=== PATIENT | male | born 1980 | race African-American/Black ===

== ENCOUNTER 2021-02-26 22:13 | Emergency (ER) | payer OTHER, SELFPAY ==
[2021-02-26 22:15] VITALS: BP 135/84; PULSE 90; RESP 16; TEMP 35.9; O2SAT 100
--- NOTE | 2021-02-26 22:51 | ED.URI ---
HPI - URI/Sore Throat General Chief Complaint: Upper Respiratory Infection Stated Complaint: sore throat Time Seen by Provider: 02/26/21 22:51 Source: patient Mode of arrival: ambulatory Limitations: no limitations History of Present Illness HPI Narrative: Patient is a 40-year-old male who is presenting for evaluation of sore throat, fever. Patient states that his is sick with similar symptoms. He started feeling unwell on Tuesday. Reports subjective fever, denies chills. No chest pain or shortness of breath. Denies cough. Patient reports myalgias as well as swollen lymph nodes in his neck. No difficulty tolerating his secretions. He has been able to eat and drink. He did take a tablet of amoxicillin that his had at home. Patient's was recently diagnosed with strep throat. He is worried that he also has strep throat. He reports that he had Covid in 2019 before anybody was officially diagnosed with Covid. He is vaccinated for Covid. Denies loss of sense of taste or smell. No diarrhea. No shortness of breath Related Data Allergies Allergy/AdvReac Type Severity Reaction Status Date / Time shellfish derived Allergy Intermediate Anaphylactic Verified 01/21/17 11:30 Shock SHELLFISH Allergy Unknown Unknown Uncoded 02/26/21 22:19 Review of Systems Review of Systems: CONSTITUTIONAL: Denies fever HEENT: Reports sore throat, no dysphagia CARDIOVASCULAR: Denies chest pain RESPIRATORY: Denies cough or dyspnea. GASTROINTESTINAL: Denies abdominal pain SKIN: Denies rash MUSCULOSKELETAL: Denies back pain NEUROLOGIC: Denies headache [facility] Past Medical History Medical History (Updated 02/26/21 @ 23:12 by Selin Riojas MD) Asthma GERD (gastroesophageal reflux disease) CHRIS (obstructive sleep apnea) Social History Social History (Updated 02/26/21 @ 23:10 by Selin Riojas MD) Smoking status: Light tobacco smoker Tobacco type: cigars Alcohol intake: current Substance use: never Living arrangements: with family Occupation/Education: occupation Additional occupation/education comments: [employer] Gender identity (if verbalized by the patient): Male Exam Narrative: GENERAL: Awake, alert, conversant HEAD: Normocephalic, atraumatic. EYES: PERRLA and EOMI. ENT: Nares clear, no rhinorrhea or epistaxis. Mucous membranes moist. No trismus. Bilateral white tonsillar exudate, tonsillar hypertrophy. No uvular edema. Uvula is midline. NECK: Supple. Positive cervical lymphadenopathy. Mobile, minimally tender. CHEST: No respiratory distress, breathing even and non labored, lungs clear to auscultation bilaterally without wheezing or crackles HEART: Regular rate, sinus rhythm ABDOMEN:Non distended, non tender EXTREMITIES: Normal range of motion. No edema. SKIN: Warm, dry, no rash. NEURO:No focal deficits. Alert and oriented x3. Ambulatory with a narrow base, steady gait. Course Vital Signs Vital signs: Vital Signs Temperature 35.9 C L 02/26/21 22:15 Pulse Rate 90 02/26/21 22:15 Respiratory Rate 16 02/26/21 22:15 Blood Pressure 135/84 02/26/21 22:15 Pulse Oximetry 100 02/26/21 22:15 Temperature 35.9 C L 02/26/21 22:15 Pulse Rate 90 02/26/21 22:15 Respiratory Rate 16 02/26/21 22:15 Blood Pressure 135/84 02/26/21 22:15 Pulse Oximetry 100 02/26/21 22:15 MDM - URI/Sore Throat MDM Narrative Medical decision making narrative: Patient presenting for evaluation of sore throat. At the time of assessment, ABCs are intact and vital signs are stable. Physical exam is notable for bilateral tonsillar exudate, tonsillar hypertrophy. No trismus. Uvula is midline. Patient is tolerating his secretions. No airway compromise or respiratory distress. No evidence of neck edema that would be consistent with deep space infection. Patient is nontoxic-appearing strep swab is negative, but given patient's is positive for strep pharyngitis, patient symptoms, [facility] crit
[2021-02-26] MEDS: AMOXICILLIN 500 MG CAPSULE PO (23:29)
[2021-02-26] MEDS: ACETAMINOPHEN 500 MG TABLET 1000 MG PO (23:29)
== END 2021-02-27 00:03 | disposition home or self-care (01) ==
LOC: ANHED 23:21
PROVIDERS: Emergency Provider Emergency Medicine; PCP Family Medicine
DX: J02.9 Acute pharyngitis, unspecified (principal); J45.909 Unspecified asthma, uncomplicated; K21.9 Gastro-esophageal reflux disease without esophagitis; G47.33 Obstructive sleep apnea (adult) (pediatric); F17.290 Nicotine dependence, other tobacco product, uncomplicated
CPT/HCPCS: 87081; 87880; 99283; A9270; J1100

== ENCOUNTER 2023-09-23 12:08 | Outpatient (CLI) | payer OTHER, SELFPAY ==
--- NOTE | ~2023-09-23 | XR_ITS ---
EXAMINATION: XR foot RT standing 2V, XR foot LT standing 2V DATE: 09/23/2023 12:47 INDICATION: Multiple joint pain. Assess for rheumatoid arthritis. TECHNIQUE: 1. Standing dorsoplantar and lateral views of the left foot were obtained. 2. Standing dorsoplantar and lateral views of the right foot were obtained. COMPARISON: None. FINDINGS: Normal alignment at the bilateral feet. No fracture. Minimal to mild osteoarthritis at the bilateral talonavicular joints and a few of the bilateral tarsal metatarsal and interphalangeal joints. No eros ions to suggest inflammatory arthritis such as rheumatoid. Small left Achilles calcaneal spur. Soft t issues are unremarkable. IMPRESSION: 1. 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 No erosions to suggest an infl ammatory arthritis. Reviewed, dictated and finalized at location A. IMPRESSION: 1. 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 No erosi ons to suggest an inflammatory arthritis.
--- NOTE | ~2023-09-23 | XR_ITS ---
EXAMINATION: HAND-PRINCE ARTHRITIS 3+VIEWS DATE: 09/23/2023 12:47 INDICATION: Systemic involvement of connective tissue. Multiple joint pain. Assess for rheumatoid art hritis. TECHNIQUE: Posteroanterior, lateral, and oblique views of the left and of the right hands as well as a ballcatchers view of both hands were obtained. COMPARISON: None. FINDINGS: Alignment is normal at the bilateral hands and wrists. No fracture. Joint spaces are normal. No erosi ons to suggest inflammatory arthritis. Soft tissues are unremarkable. IMPRESSION: 1. Negative bilateral hand radiographs. Reviewed, dictated and finalized at location A.
== END 2023-09-23 12:09 ==
PROVIDERS: PCP Family Medicine; Visit Provider Internal Medicine
DX: M19.072 Primary osteoarthritis, left ankle and foot (principal); M19.071 Primary osteoarthritis, right ankle and foot; M79.642 Pain in left hand; M79.641 Pain in right hand
CPT/HCPCS: 73130; 73620

== ENCOUNTER 2025-05-04 15:07 | Emergency (ER) | payer SELFPAY ==
[2025-05-04 15:12] VITALS: BP 131/78; PULSE 84; RESP 20; TEMP 37.1; O2SAT 100
--- NOTE | 2025-05-04 15:21 | PC.NURSE ---
Pt said, I changed my mind, I do not need to see a doctor.
== END 2025-05-04 15:58 | disposition left against medical advice (07) ==
PROVIDERS: PCP Family Medicine
DX: M79.601 Pain in right arm (principal)
CPT/HCPCS: 99199